=== PATIENT | male | born 1970 | race Caucasian/White ===

== ENCOUNTER → 2021-07-14 | Day surgery (SDC) | payer OTHER ==
[~2021-07-14] VITALS: Ht 188 cm; Wt 122.5 kg
[~2021-07-14] MED LIST: ATORVASTATIN CA10 MG PO; CARVEDILOL 25MG25 MG PO; ELIQUIS5 MG PO; ENTRESTO 97 MG1 EACH PO; GLIPIZIDE10 MG PO; JANUVIA 100MG100 MG PO; LASIX40 MG PO; METFORMIN HCL1000 MG PO; OMEPRAZOLE40 MG PO; PROAIR HFA8.5 GM INH; SPIRONOLACTONE25 M1 PO
[2021-07-14 13:11] LABS: HCT 41.7 % (42.0-52.0); HGB 14.2 g/dl (13.2-18.0); MCH 30.1 pg (25.0-31.0); MCHC 34.1 g/dL (32.0-36.0); MCV 88.3 fL (78.0-100.0); MPV 10.7 fL (6.0-9.5); RBC 4.72 M/uL (4.70-6.00); RDW 13.1 % (11.5-14.0); WBC 7.6 K/uL (4.0-10.5)
[2021-07-14 13:26] LABS: BUN/CREAT RATIO (CALC) 23.8 RATIO; CREATININE 0.84 mg/dL (0.67-1.17); POTASSIUM 3.9 mmol/L (3.5-5.1)
== END | disposition home or self-care (01) ==
LOC: FAS 07:45
PROVIDERS: Anesthesiology; Legal Medicine
DX: G56.02 Carpal tunnel syndrome, left upper limb (principal); G56.22 Lesion of ulnar nerve, left upper limb; Z88.8 Allergy status to other drugs, medicaments and biological substances; Z91.018 Allergy to other foods
CPT/HCPCS: 36415; 80048; 93005; J0690; J1100; J2250; J2405; J2704; J2795; J3010; J7120